=== PATIENT | female | born 1935 | race Hispanic/Latino ===

== ENCOUNTER 2020-08-29 10:31 | Emergency (ER) | payer MEDICARE | END 2020-08-29 13:34 | disposition home or self-care (01) | LOC: EDH 10:31 | DX: M17.11 Unilateral primary osteoarthritis, right knee (principal); J44.9 Chronic obstructive pulmonary disease, unspecified; E13.9 Other specified diabetes mellitus without complications; I10 Essential (primary) hypertension; Z88.0 Allergy status to penicillin | CPT/HCPCS: 73502; 73552 ==